=== PATIENT | female | born 1945 | race Caucasian/White ===

== ENCOUNTER 2017-05-24 21:51 | Inpatient (IN) ==
[2017-05-24 23:17] LABS: Basophils % 0.4 % (0.0-0.8); Eosinophils % 0.2 % (0.00-10.9); Hematocrit 29.9 VOL% (35.7-47.0); Hemoglobin 9.4 GM/DL (12.0-16.0); Immature Granulocytes % 0.2 %; Immature Granulocytes Absolute 0.01 #; Lymphocytes # 1.1 10*3/uL (1.4-4.0); Lymphocytes % 24.1 % (21.3-54.2); Mean Corpuscular HGB Conc 31.4 GM/DL (32-36); Mean Corpuscular Hemoglobin 28 PG (27-34); Mean Corpuscular Volume 87.4 FL (87-102); Mean Platelet Volume 11.2 FL (9.6-12.0); Monocytes # 0.5 10*3/uL (0.11-0.8); Monocytes % 11.2 % (1.7-12.7); Neutrophils % 63.9 % (38.7-73.9); Platelet Count 235 T/CUMM (130-400); Red Blood Count 3.42 MC/CUMM (3.8-5.5); Red Cell Distribution Width 14.9 % (9.3-17.3); White Blood Count 4.7 T/CUMM (4-12)
[2017-05-24 23:30] LABS: Calcium 9.8 MG/DL (8.5-10.1); Magnesium 1.4 MG/DL (1.8-2.4); Osmolality,Calculated 283.3 MOS/KG (273-304); Potassium 3.4 MMOL/L (3.5-5.1)
[2017-05-24 23:31] LABS: Troponin I Only 0.098 NG/ML (0.00-0.045)
[2017-05-25] MEDS ORDERED: ASPIRIN CHEW 81 MG TABLET PO STA (00:58)
[2017-05-25] MEDS ORDERED: FUROSEMIDE 40 MG/4 ML VIAL IV STA ×2 (01:10→02:21)
[2017-05-25] MEDS ORDERED: ASPIRIN 325 MG TABLET ONE (02:13)
[2017-05-25] MEDS ORDERED: FUROSEMIDE 40 MG/4 ML VIAL ONE (02:13)
[2017-05-25] MEDS ORDERED: ENOXAPARIN 30 MG/0.3 ML SYRINGE SUBCUT STA (02:50)
[2017-05-25] MEDS ORDERED: ENOXAPARIN 60 MG/0.6 ML SYRINGE ONE (03:13)
[2017-05-25] MEDS ORDERED: ONDANSETRON ODT 4 MG TABLET PO PRN (04:04)
[2017-05-25] MEDS ORDERED: TEMAZEPAM 15 MG CAPSULE PO PRN (04:04)
[2017-05-25] MEDS ORDERED: POTASSIUM CHLORIDE 20 MEQ PACK PO STA (04:04)
[2017-05-25] MEDS ORDERED: FUROSEMIDE 40 MG/4 ML VIAL IV ONE (07:00)
[2017-05-25] MEDS: PANTOPRAZOLE 40 MG TABLET PO SCH ×2 (09:14→21:56)
[2017-05-25] MEDS: SUCRALFATE 1 GM/10 ML UDCUP PO SCH ×2 (09:48→16:11)
[2017-05-25] MEDS ORDERED: MAGNESIUM SULF RIDER 2 GM in PREMIX 1 EACH IV ONE (12:58)
[2017-05-25] MEDS: ENOXAPARIN 60 MG/0.6 ML SYRINGE SUBCUT SCH (13:32)
[2017-05-25] MEDS: ROSUVASTATIN 20 MG TABLET PO SCH (13:33)
[2017-05-25] MEDS: ASPIRIN CHEW 81 MG TABLET PO SCH (13:34)
[2017-05-25] MEDS: FUROSEMIDE 40 MG/4 ML VIAL IV SCH (16:09)
[2017-05-25] MEDS: METOPROLOL TARTRATE 25 MG TABLET PO SCH ×2 (16:10→21:56)
[2017-05-25] MEDS: TEMAZEPAM 15 MG CAPSULE PO PRN (21:57)
[2017-05-26] MEDS: ENOXAPARIN 60 MG/0.6 ML SYRINGE SUBCUT SCH ×2 (03:45→13:29)
[2017-05-26 03:59] LABS: Eosinophils # 0.1 10*3/uL (0.0-0.87); Hematocrit 27.6 VOL% (35.7-47.0); Hemoglobin 8.5 GM/DL (12.0-16.0); Immature Granulocytes % 0.3 %; Immature Granulocytes Absolute 0.01 #; Lymphocytes # 1.4 10*3/uL (1.4-4.0); Lymphocytes % 44.6 % (21.3-54.2); Mean Corpuscular HGB Conc 30.8 GM/DL (32-36); Mean Corpuscular Hemoglobin 27 PG (27-34); Mean Corpuscular Volume 88.7 FL (87-102); Mean Platelet Volume 10.6 FL (9.6-12.0); Monocytes # 0.5 10*3/uL (0.11-0.8); Monocytes % 16.4 % (1.7-12.7); Neutrophils # 1.1 10*3/uL (1.4-7.4); Neutrophils % 35.7 % (38.7-73.9); Platelet Count 201 T/CUMM (130-400); Red Blood Count 3.11 MC/CUMM (3.8-5.5); Red Cell Distribution Width 14.8 % (9.3-17.3); White Blood Count 3.1 T/CUMM (4-12)
[2017-05-26 04:29] LABS: Calcium 9.1 MG/DL (8.5-10.1); Osmolality,Calculated 285.1 MOS/KG (273-304); Potassium 4.1 MMOL/L (3.5-5.1)
[2017-05-26 04:40] LABS: Blood Urea Nitrogen 25 MG/DL (7-18); Calcium 9.1 MG/DL (8.5-10.1); Free T4 (Free Thyroxine) 1.24 NG/DL (0.76-1.46); Glucose 81 MG/DL (74-106); Magnesium 1.9 MG/DL (1.8-2.4); Potassium 4.2 MMOL/L (3.5-5.1); Sodium 143 MMOL/L (136-145)
[2017-05-26 04:47] LABS: Troponin I Only 0.068 NG/ML (0.00-0.045)
[2017-05-26 05:36] LABS: Lymphocytes 42 % (20-55); Platelet Estimate Decreased; Segmented Neutrophils 43 % (50-85); Total Cells Counted 100
[2017-05-26] MEDS: SUCRALFATE 1 GM/10 ML UDCUP PO SCH ×2 (08:40→16:10)
[2017-05-26] MEDS: FUROSEMIDE 40 MG/4 ML VIAL IV SCH ×2 (08:41→16:13)
[2017-05-26] MEDS: METOPROLOL TARTRATE 25 MG TABLET PO SCH ×3 (08:41→21:59)
[2017-05-26] MEDS: ROSUVASTATIN 20 MG TABLET PO SCH (08:41)
[2017-05-26] MEDS: ASPIRIN CHEW 81 MG TABLET PO SCH (08:42)
[2017-05-26] MEDS: PANTOPRAZOLE 40 MG TABLET PO SCH ×2 (08:42→21:59)
[2017-05-26] MEDS ORDERED: diphenhydrAMINE CAP 25 MG CAPSULE PO ONE (13:31)
[2017-05-26] MEDS ORDERED: POTASSIUM CHLORIDE RIDER 10 MEQ in PREMIX 1 EACH IV PRN (13:31)
[2017-05-26] MEDS ORDERED: DIAZEPAM 5 MG TABLET PO ONE (13:31)
[2017-05-26] MEDS ORDERED: MAGNESIUM SULF RIDER 2 GM in PREMIX 1 EACH IV PRN (13:31)
[2017-05-26] MEDS ORDERED: diphenhydrAMINE CAP 50 MG CAPSULE ONE (14:04)
[2017-05-26] MEDS ORDERED: LIDOCAINE 1% 20 ML VIAL ONE (14:47)
[2017-05-26] MEDS ORDERED: HYDROmorphone 2 MG/1 ML VIAL ONE (14:54)
[2017-05-26] MEDS ORDERED: MIDAZOLAM 2 MG/2 ML VIAL ONE (14:55)
[2017-05-26] MEDS ORDERED: methylPREDNISolone SOD SUC 125 MG/2 ML VIAL ONE (14:57)
[2017-05-26] MEDS ORDERED: ONDANSETRON 4 MG/2 ML VIAL IV PRN (15:16)
[2017-05-26] MEDS ORDERED: HYDROmorphone 2 MG/1 ML VIAL IV PRN (15:16)
[2017-05-26] MEDS ORDERED: ZALEPLON 5 MG CAPSULE PO PRN (15:16)
[2017-05-26] MEDS: TEMAZEPAM 15 MG CAPSULE PO PRN (21:59)
[2017-05-27 05:19] LABS: Basophils % 0.4 % (0.0-0.8); Hematocrit 28.7 VOL% (35.7-47.0); Hemoglobin 8.7 GM/DL (12.0-16.0); Immature Granulocytes % 0.4 %; Immature Granulocytes Absolute 0.01 #; Lymphocytes # 0.6 10*3/uL (1.4-4.0); Lymphocytes % 20.9 % (21.3-54.2); Mean Corpuscular HGB Conc 30.3 GM/DL (32-36); Mean Corpuscular Hemoglobin 27 PG (27-34); Mean Corpuscular Volume 89.1 FL (87-102); Mean Platelet Volume 10.8 FL (9.6-12.0); Monocytes # 0.1 10*3/uL (0.11-0.8); Monocytes % 4.9 % (1.7-12.7); Neutrophils # 1.9 10*3/uL (1.4-7.4); Neutrophils % 73.4 % (38.7-73.9); Platelet Count 215 T/CUMM (130-400); Red Blood Count 3.22 MC/CUMM (3.8-5.5); Red Cell Distribution Width 14.4 % (9.3-17.3); White Blood Count 2.6 T/CUMM (4-12)
[2017-05-27 05:50] LABS: Calcium 8.4 MG/DL (8.5-10.1); Osmolality,Calculated 290.3 MOS/KG (273-304); Potassium 4.2 MMOL/L (3.5-5.1)
[2017-05-27] MEDS ORDERED: VALSARTAN 80 MG TABLET PO SCH (09:00)
[2017-05-27] MEDS: SUCRALFATE 1 GM/10 ML UDCUP PO SCH ×2 (12:03→17:34)
[2017-05-27] MEDS: FUROSEMIDE 40 MG/4 ML VIAL IV SCH ×2 (12:05→15:14)
[2017-05-27] MEDS: PANTOPRAZOLE 40 MG TABLET PO SCH ×2 (12:07→21:58)
[2017-05-27] MEDS: METOPROLOL TARTRATE 25 MG TABLET PO SCH ×3 (12:07→21:58)
[2017-05-27] MEDS: ROSUVASTATIN 20 MG TABLET PO SCH (12:07)
[2017-05-27] MEDS: ASPIRIN CHEW 81 MG TABLET PO SCH (12:13)
[2017-05-27] MEDS ORDERED: diphenhydrAMINE CAP 25 MG CAPSULE PO PRN (18:14)
[2017-05-27] MEDS ORDERED: ACETAMINOPHEN 500 MG TABLET PO PRN (18:14)
[2017-05-27] MEDS ORDERED: MAGNESIUM HYDROXIDE SUSP 30 ML UDCUP PO PRN (18:15)
[2017-05-27] MEDS ORDERED: BISACODYL 5 MG TABLET PO PRN (18:15)
[2017-05-27] MEDS: TEMAZEPAM 15 MG CAPSULE PO PRN (21:57)
[2017-05-28 04:11] LABS: Basophils % 0.4 % (0.0-0.8); Hematocrit 27.2 VOL% (35.7-47.0); Hemoglobin 8.2 GM/DL (12.0-16.0); Immature Granulocytes % 0.2 %; Immature Granulocytes Absolute 0.01 #; Lymphocytes # 1.9 10*3/uL (1.4-4.0); Lymphocytes % 34.1 % (21.3-54.2); Mean Corpuscular HGB Conc 30.1 GM/DL (32-36); Mean Corpuscular Hemoglobin 27 PG (27-34); Mean Corpuscular Volume 90.1 FL (87-102); Mean Platelet Volume 11.4 FL (9.6-12.0); Monocytes # 0.8 10*3/uL (0.11-0.8); Monocytes % 13.7 % (1.7-12.7); Neutrophils # 2.8 10*3/uL (1.4-7.4); Neutrophils % 51.6 % (38.7-73.9); Platelet Count 200 T/CUMM (130-400); Red Blood Count 3.02 MC/CUMM (3.8-5.5); Red Cell Distribution Width 14.5 % (9.3-17.3); White Blood Count 5.5 T/CUMM (4-12)
[2017-05-28 04:38] LABS: Calcium 8.6 MG/DL (8.5-10.1); Magnesium 1.7 MG/DL (1.8-2.4); Osmolality,Calculated 293.4 MOS/KG (273-304); Potassium 4.3 MMOL/L (3.5-5.1)
[2017-05-28] MEDS: SUCRALFATE 1 GM/10 ML UDCUP PO SCH ×2 (09:29→16:03)
[2017-05-28] MEDS: ROSUVASTATIN 20 MG TABLET PO SCH (09:29)
[2017-05-28] MEDS: METOPROLOL TARTRATE 25 MG TABLET PO SCH ×3 (09:30→21:56)
[2017-05-28] MEDS: PANTOPRAZOLE 40 MG TABLET PO SCH ×2 (09:30→21:56)
[2017-05-28] MEDS: ASPIRIN CHEW 81 MG TABLET PO SCH (09:30)
[2017-05-28] MEDS: TEMAZEPAM 15 MG CAPSULE PO PRN (21:56)
[2017-05-29 05:04] LABS: Basophils % 0.4 % (0.0-0.8); Eosinophils % 0.6 % (0.00-10.9); Hematocrit 29.8 VOL% (35.7-47.0); Hemoglobin 9.1 GM/DL (12.0-16.0); Immature Granulocytes % 0.2 %; Immature Granulocytes Absolute 0.01 #; Lymphocytes # 1.8 10*3/uL (1.4-4.0); Lymphocytes % 36.1 % (21.3-54.2); Mean Corpuscular HGB Conc 30.5 GM/DL (32-36); Mean Corpuscular Hemoglobin 28 PG (27-34); Mean Platelet Volume 11.3 FL (9.6-12.0); Monocytes # 0.6 10*3/uL (0.11-0.8); Neutrophils # 2.5 10*3/uL (1.4-7.4); Neutrophils % 50.7 % (38.7-73.9); Platelet Count 209 T/CUMM (130-400); Red Blood Count 3.31 MC/CUMM (3.8-5.5); Red Cell Distribution Width 14.5 % (9.3-17.3)
[2017-05-29 05:29] LABS: Calcium 8.7 MG/DL (8.5-10.1); Magnesium 1.8 MG/DL (1.8-2.4); Osmolality,Calculated 294.1 MOS/KG (273-304); Potassium 4.3 MMOL/L (3.5-5.1)
[2017-05-29 05:42] LABS: Risk Ratio 2.02; VLDL CHOLESTEROL 13.4 MG/DL
[2017-05-29] MEDS: METOPROLOL TARTRATE 25 MG TABLET PO SCH ×2 (09:31→14:26)
[2017-05-29] MEDS: ASPIRIN CHEW 81 MG TABLET PO SCH (09:32)
[2017-05-29] MEDS: PANTOPRAZOLE 40 MG TABLET PO SCH (09:32)
[2017-05-29] MEDS: SUCRALFATE 1 GM/10 ML UDCUP PO SCH ×2 (09:34→16:17)
[2017-05-29 17:19] VITALS: BP 123/51
[2017-05-30] MEDS ORDERED: FUROSEMIDE 20 MG TABLET PO SCH (09:00)
== END 2017-05-29 19:05 | disposition home or self-care (01) | DRG 287 ==
LOC: N.EDINP 21:51 → N.ED 21:51 → N.TELES 05-25 03:02
PROVIDERS: ADMIT Internal Medicine Cardiovascular Disease; ATTEND Internal Medicine Cardiovascular Disease
PROC: CLCCHCL (ICD-10-PCS; 2017-05-26 18:15)